=== PATIENT | female | born 1980 ===

== ENCOUNTER 2020-10-15 09:15 | Outpatient (RCR) | payer OTHER, SELFPAY ==
[2020-10-04 14:13] VITALS: BMI 21.0
--- NOTE | 2020-10-04 14:37 | PC.ADMIT ---
Patient is a 40 year old female who was referred to the [facility] PHP program d/t increase in depression with SI> Reportedly patient had a plan to buy a gun however patient did not buy a gun and denied current plan to buy a gun. She also reports PTSD sxs. 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 Patient also feeling overwhelmed with remote work and remote learning with her children. In addition, patient had an affair and continues to keep in touch with the father of the person she had an affair with as patient stated she knows the family well and the father is currently ill. Patient stated her is upset regarding this. They are currently going to couples therapy. Patient has been using ETOH to cope. Recommended patient attend online substance use groups in addition to PHP for more support. Patient denied sxs of ETOH withdrawal. Stated she has been drinking for the past 6 months 3 nights a week drinking 6-7 drinks at a time. Medications reconciled with patient and patient's pharmacy. Educated patient on side effects of drinking and prescription medications. Patient denied current SI. She gave verbal permission to email her a copy of her safety plan.
--- NOTE | 2020-10-04 14:44 | HO.PS.ADMBH ---
HPI Chief Complaint: depression Sources of Information: patient interviewed and chart reviewed HPI Narrative: 40 yo female, referred by Dr. Richardson for increase in depressive sx, SI- had a plan to purchase a weapon, wrote letters and stopped this plan when she tried to write letters to both children, anxiety and guilty feelings related to current stressors along with grief. Reports using alcohol approximately 3 times per week, 6-7 servings which helps with sleep. 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 Sleep is poor with THO, better on the evenings she consumes alcohol. Reports med regime she does not want to change-recent increase in Lexapro to 10 mg last week, Gabapentin not too helpful with sleep but she will continue and disappointed in Wellbutrin. Worries about weight gain with medications although she acknowledges alcohol use and current stressors contribute. Reports she tends to be more anxious than depressed and feels she meets criteria for BPD. Past Psychiatric History: IP: 1 admission 2018 OP: Dr. Richardson- seven years- notified of admission and pt not wanting to make changes; Psychotherapy: Melissa Lutz; Couples therapy as well. Initiated psychotherapy at age 9. Hx of SIBS-cutting PHP: Denies hx. Trials: Paxil, Prozac (during 1st and 2nd trimester of ), Trazodone, Desvenlafaxine Hx of post depressive sx. Hx of depressive sx s/p miscarriage Medical Evaluation Reviewed: No (NA) [facility] Medical History (Updated 10/04/20 @ 17:29 by Cecile Bradley, OB TECH) Alcohol use disorder, moderate, dependence Anemia Endometriosis PTSD (post-traumatic stress disorder) Recurrent major depression-severe Narrative: Pt reports she was supposed to have follow up labs for a high glucose. She has not completed these. We discussed having a lab panel drawn here. She initially agreed then declined, stating she would go to PCP office for follow up. Family History: Pt is adopted. She is aware of addiction and depression in biological family Social History: Pt lives with her 2 children, ages 6 and 10. She shares custody. 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 Substance History: Alcohol- Approx 3 times per week, 6-7 servings DUI 2017 No hx detox/rehab. Trauma History: Yes Diagnostics Vital Signs (24Hr): Body Mass Index 21.0 Labs Labs: Will go to PCP office for follow up. Meds/Allergies Meds Narrative: Wellbutrin 100 mg daily Lexapro 10 mg daily Gabapentin 100 mg HS prn Allergies Allergies Allergy/AdvReac Type Severity Reaction Status Date / Time bee pollen [bee stings] Allergy Difficulty Verified 10/04/20 14:11 Breathing Penicillins [PCN] Allergy Unknown Verified 10/04/20 14:51 Mental Status Exam Mental Status Exam Patient Appearance: Fatigued and Appropriate Patient Orientation: Person, Place, Time and Situation Level of Consciousness: Alert Patient Behavior: Appropriate, Talkative and Cooperative Mood Description: Withdrawn, Depressed, Anxious, Sad and Apprehensive Affect Description: Flat Patient Cognition Impaired: No Ability to Follow Directions: Good Speech Pattern: Clear and Spontaneous Speech Memory Description: Episodic Impaired Hallucinations: None Delusions: Not Present Thought Process: Rumination Thought Content: positive for [place] and positive for Circumstantial Depressive Symptoms: Increased Anxiety, Difficulty Sleeping, Feelings of Worthlessness, Hopelessness, Feelings of Guilt, Unhappiness, Increased Fatigue and Low Self Esteem Judgement: Good Assessment & Plan Assessment & Plan (1) PTSD (post-traumatic stress disorder): Status: Acute Code(s): F43.10 - Post-traumatic stress disorder, unspecified Assessment and Plan: [facility] Plan of care (2) Recurrent major depression-severe: Status: Acute Code(s): F33.2 - Major depressive disorder, recurrent severe without psychotic features Assessment and Plan: Continue current regime. If Lexapro is ineffective, possibly Trintellix trial? (3) Alcohol use disorder, moderate, dependence: Status: Acute Code(s): F10.20 - Alcohol dependence, uncomplicated Assessment and Plan: -Encouraged AA, recovery based activites Certification I certify that partial hospital treatment is medically necessary due to the symptoms and problems resulting from the patient's mental illness and the failure to treat the patient at the partial hospital level of care would likely result in the patient requiring inpatient psychiatric care which could not be prevented at a less intensive level of care. Telehealth Telehealth Location of provider rendering services: practice address Location of patient: address on file Patient Identification confirmed using: Name, : Yes Telehealth method: video Patient verbally consented to treatment: Yes Patient verbally consented to billing insurance company: Yes Patient informed of any privacy concerns related to visit: Yes Time spent with patient (mins): 25
--- NOTE | 2020-10-08 17:36 | HO.PHPPROGNO ---
Subjective Subjective Date of Service: 10/08/20 Reason For Visit: depression Interim History: Pt reporting insomnia-was using alcohol three times per week, 6-7 servings. Reports meds are effective for depression, however, Gabapentin 100 mg hs prn for sleep is not. Pt is not using alcohol and would like to remain that way. Diagnostics Vital Signs (24Hr): Body Mass Index 21.0 Assessment & Plan Assessment & Plan (1) Alcohol use disorder, moderate, dependence: Status: Acute Code(s): F10.20 - Alcohol dependence, uncomplicated Assessment and Plan: -Insomnia-early recovery-discussion of sleep hygiene, progressive relaxation, light rx 3000lux, trazodone, gabapentin, seroquel. -Increase Gabapentin to 300 mg HS (2) Recurrent major depression-severe: Status: Acute Code(s): F33.2 - Major depressive disorder, recurrent severe without psychotic features (3) PTSD (post-traumatic stress disorder): Status: Acute Code(s): F43.10 - Post-traumatic stress disorder, unspecified Certification I certify that partial hospital treatment is medically necessary due to the symptoms and problems resulting from the patient's mental illness and the failure to treat the patient at the partial hospital level of care would likely result in the patient requiring inpatient psychiatric care which could not be prevented at a less intensive level of care. Greater than 50% of the session was spent on counseling and/or coordination of care Discharge Plan Discharge Attending provider: Gianfranco Choi Medications: New gabapentin 300 mg capsule 300 mg PO BEDTIME Qty: 14 RF: 0 Discontinued gabapentin 100 mg Tablet 100 - 200 mg PO BEDTIME RF: 0 No Action bupropion HCl 100 mg Tablet 100 - 200 mg PO DAILY RF: 0 escitalopram oxalate 10 mg Tablet 10 mg PO DAILY RF: 0 Telehealth Telehealth Location of provider rendering services: practice address Location of patient: address on file Patient Identification confirmed using: Name, : Yes Telehealth method: voice only Patient verbally consented to treatment: Yes Patient verbally consented to billing insurance company: Yes Patient informed of any privacy concerns related to visit: Yes Time spent with patient (mins): 25
--- NOTE | 2020-10-11 15:12 | PC.NURSE ---
I called and spoke to pt about her experience in the program (which is positive), her schedule, and length of stay. She will be attending a weekly DBT coping skills group at [facility], for which she has an intake scheduled on 10/27/20. She will discharge from [facility] on 10/15/20.
== END 2020-10-15 23:55 | disposition home or self-care (01) ==
LOC: HO.PHPA 09:15
PROVIDERS: Visit Provider Psychiatry & Neurology Psychiatry
DX: F33.2 Major depressive disorder, recurrent severe without psychotic features (principal); F43.10 Post-traumatic stress disorder, unspecified; F10.20 Alcohol dependence, uncomplicated
CPT/HCPCS: 90791; 90853